=== PATIENT | male | born 1985 | race African-American/Black ===

== ENCOUNTER 2022-07-16 07:13 | Inpatient (IN) | payer MEDICAID, OTHER ==
[~2022-07-16] VITALS: Ht 188 cm; Wt 90.7 kg
[2022-07-16] MEDS ORDERED: LORAZEPAM 2MG/ML CPJ IV ONE (07:30)
[2022-07-16] MEDS ORDERED: FOLIC ACID 1 MG, THIAMINE HCL 100 MG, MVI, ADULT NO.1 10 ML in DEXTROSE 5% WATER 1,000 ML IV ONE ×4 (07:30)
[2022-07-16] MEDS ORDERED: CHLORDIAZEPOXIDE 25MG CAPSULE PO ONE (07:30)
[2022-07-16] MEDS ORDERED: ONDANSETRON HCL 4MG/2ML INJ IV ONE (07:30)
[2022-07-16 10:25] LABS: HEMATOCRIT. 41.6 % (42.0-52.0); HEMOGLOBIN. 13.9 g/dL (14.0-18.0); MEAN CORPUSCULAR HEMOGLOBIN 30.1 pg (28.0-32.0); MEAN CORPUSCULAR VOLUME 89.7 fL (80.0-94.0); MEAN PLATELET VOLUME 7.5 fl (7.4-10.4); PLATELET 358 x1000/uL (130-400); RED BLOOD CELL COUNT 4.63 mill/uL (4.7-6.1); RED CELL DISTRIBUTION WIDTH 15.3 % (11.6-14.6)
[2022-07-16 10:31] LABS: CHLORIDE 100 mEq/L (98-107)
[2022-07-16 10:39] LABS: ETHANOL BLOOD 10 mg/dL
[2022-07-16 11:48] LABS: PLATELET ESTIMATE NORMAL
[2022-07-16] MEDS ORDERED: LOPERAMIDE HCL 2MG CAPSULE PO PRN (17:00)
[2022-07-16] MEDS ORDERED: IPRATROPIUM/ALBUTEROL 0.5-3(2.5)MG/3ML NEB HHN PRN (17:00)
[2022-07-16] MEDS ORDERED: CLONIDINE 0.1MG TABLET PO PRN (17:00)
[2022-07-16] MEDS ORDERED: ACETAMINOPHEN 325MG TABLET PO PRN (17:00)
[2022-07-16] MEDS: LORAZEPAM 1MG TABLET PO PRN (17:29)
[2022-07-16] MEDS: ONDANSETRON HCL 4MG/2ML INJ IV PRN (17:29)
[2022-07-16] MEDS: VENLAFAXINE HCL 37.5MG SR CAPSULE 24HR PO SCH (22:30)
[2022-07-16] MEDS: CHLORDIAZEPOXIDE 25MG CAPSULE PO SCH (22:52)
[2022-07-17] MEDS: DIPHENHYDRAMINE 50MG/ML VIAL IV PRN ×2 (01:10→18:54)
[2022-07-17 04:35] LABS: BASOPHILS % 0.4 % (0.0-2.0); EOSINOPHILS % 0.9 % (0.0-5.0); HEMATOCRIT. 43.5 % (42.0-52.0); HEMOGLOBIN. 14.8 g/dL (14.0-18.0); LYMPHOCYTES % 16.3 % (20.0-50.0); MEAN CORPUSCULAR HEMOGLOBIN 30.1 pg (28.0-32.0); MEAN CORPUSCULAR VOLUME 88.7 fL (80.0-94.0); MEAN PLATELET VOLUME 7.7 fl (7.4-10.4); MONOCYTES % 9.5 % (2.0-8.0); NEUTROPHILS % 72.9 % (40.0-76.0); PLATELET 337 x1000/uL (130-400); RED CELL DISTRIBUTION WIDTH 15.1 % (11.6-14.6)
[2022-07-17 04:48] LABS: CHLORIDE 103 mEq/L (98-107)
[2022-07-17] MEDS: CHLORDIAZEPOXIDE 25MG CAPSULE PO SCH ×2 (06:08→14:21)
[2022-07-17] MEDS: ONDANSETRON HCL 4MG/2ML INJ IV PRN ×2 (06:15→10:20)
[2022-07-17 08:00] VITALS: BP 133/79
[2022-07-17 09:00] VITALS: BP 133/79
[2022-07-17] MEDS: LORAZEPAM 1MG TABLET PO PRN (09:59)
[2022-07-17] MEDS: VENLAFAXINE HCL 37.5MG SR CAPSULE 24HR PO SCH (09:59)
[2022-07-17 12:00] VITALS: BP 126/69
[2022-07-17] MEDS: THIAMINE HCL 100MG TABLET PO SCH (15:45)
[2022-07-17] MEDS: MULTIVITAMINS,THER W-MINERALS TABLET PO SCH (15:45)
[2022-07-17] MEDS: FOLIC ACID 1MG TABLET PO SCH (15:45)
[2022-07-17 16:00] VITALS: BP 146/99
[2022-07-17] MEDS: GABAPENTIN 300MG CAPSULE PO SCH (17:30)
[2022-07-17] MEDS ORDERED: CHLORDIAZEPOXIDE 25MG CAPSULE PO PRN (17:30)
[2022-07-17 18:48] LABS: VITAMIN B12 SERUM 397 pg/mL (211-911)
[2022-07-17] MEDS: LORAZEPAM 2MG/ML CPJ IV PRN (18:51)
[2022-07-17 20:00] VITALS: BP 134/86
[2022-07-18] VITALS (7 sets, daily range): BP systolic 116–163; BP diastolic 62–103
[2022-07-18] MEDS: MULTIVITAMINS,THER W-MINERALS TABLET PO SCH (08:33)
[2022-07-18] MEDS: FOLIC ACID 1MG TABLET PO SCH (08:33)
[2022-07-18] MEDS: GABAPENTIN 300MG CAPSULE PO SCH ×2 (08:33→17:18)
[2022-07-18] MEDS: THIAMINE HCL 100MG TABLET PO SCH (08:33)
[2022-07-18] MEDS: LORAZEPAM 2MG/ML CPJ IV PRN ×2 (08:40→14:28)
[2022-07-18] MEDS ORDERED: VENLAFAXINE HCL 37.5MG SR CAPSULE 24HR PO SCH (09:00)
[2022-07-18] MEDS ORDERED: SIMETHICONE 80MG TABLET CHEW PO PRN (09:15)
[2022-07-18] MEDS ORDERED: PANTOPRAZOLE SODIUM 40 MG/VIAL IV SCH (09:15)
[2022-07-18 15:58] LABS: AMYLASE 54 IU/L (25-115)
[2022-07-18 17:03] LABS: *AMPHETAMINES SCREEN URINE NEGATIVE (NEGATIVE); *BARBITURATES SCREEN URINE NEGATIVE (NEGATIVE); *BENZODIAZEPINES SCREEN URINE PRESUMTIVE POSITIVE (NEGATIVE); *COCAINE SCREEN URINE NEGATIVE (NEGATIVE); CANNABINOID URINE SCREEN PRESUMTIVE POSITIVE (NEGATIVE); METHADONE URINE SCREEN NEGATIVE (NEGATIVE); OPIATES URINE SCREEN NEGATIVE (NEGATIVE); PHENCYCLIDINE URINE SCREEN NEGATIVE (NEGATIVE)
== END 2022-07-18 17:35 | DRG 199 ==
LOC: ER 07:13 → 7WST 12:56 → EDBEDREQTM 12:59 → EDBEDREQ 12:59 → ENRESERV 07-17 07:06 → 6EST 07-18 11:25
PROVIDERS: ADMIT Internal Medicine; ATTEND Internal Medicine
DX: I10 Essential (primary) hypertension (principal); F32.3 Major depressive disorder, single episode, severe with psychotic features; R45.851 Suicidal ideations; F10.239 Alcohol dependence with withdrawal, unspecified; Z20.822 Contact with and (suspected) exposure to COVID-19; F41.9 Anxiety disorder, unspecified; R74.01 Elevation of levels of liver transaminase levels; Y90.9 Presence of alcohol in blood, level not specified; Z91.51 Personal history of suicidal behavior
CPT/HCPCS: 36415; 80053; 80061; 80305; 80320; 82150; 82607; 82746; 83036; 84443; 85025; 87426; 93970; 99285; J1200; J2060; J2405; J3411; J3490; J7070; G0480